=== PATIENT | male | born 1965 | race American Indian/Alaskan Native ===

== ENCOUNTER 2019-11-06 15:23 | Emergency (ER) | payer MEDICARE, OTHER ==
[2019-11-06] MEDS ORDERED: ACETAMINOPHEN 325 MG TAB PO ONE (15:54)
--- NOTE | 2019-11-06 15:56 | Emergency Department Report ---
HPI - General Chief Complaint: Allergic Reaction ED Past Medical Hx - Past Medical History Previous Medical History?: Yes Hx Hypertension: Yes Hx Heart Attack/AMI: No Hx Congestive Heart Failure: No Hx Diabetes: No Hx Deep Vein Thrombosis: No Hx Pulmonary Embolism: No Hx Liver Disease: No Hx Renal Disease: No Hx Sickle Cell Disease: No Hx Arthritis: No Hx Seizures: No Hx Kidney Stones: No Hx Asthma: No Hx COPD: No Hx Tuberculosis: No Hx Dementia: No Hx HIV: No Additional medical history: high cholesterol - Surgical History Hx Coronary Stent: No Hx Pacemaker: No Hx Internal Defibrillator: No - Social History Smoking Status: Former Smoker - Medications Home Medications: Home Medications Medication Instructions Recorded Confirmed Last Taken Type Alfuzosin HCl [Alfuzosin HCl ER] 10 mg PO DAILY 05/29/18 05/29/18 05/29/18 History Gabapentin [Gralise] 300 mg PO DAILY 05/29/18 05/29/18 05/29/18 History Metformin HCl [Fortamet ER] 1,000 mg PO QDAY 05/29/18 05/29/18 05/29/18 History Multivitamin Tab [Multiple Vitamin 1 each PO QDAY 05/29/18 05/29/18 05/29/18 History TAB (Theragran)] Verapamil ER [Calan Sr] 240 mg PO DAILY 05/29/18 05/29/18 05/29/18 History buPROPion SR [Wellbutrin Sr] 150 mg PO QAM 05/29/18 05/29/18 05/29/18 History Clindamycin [Clindamycin CAP] 600 mg PO BID #20 capsule 06/01/18 Unknown Rx oxyCODONE /ACETAMINOPHEN [Percocet 1 tab PO Q6HR PRN #12 tablet 06/01/18 Unknown Rx 5/325] ED Review of Systems ROS: Stated complaint: ALERGIC REACTION Other details as noted in HPI Physical Exam - Physical Exam Vital Signs: Vital Signs 11/06/19 11/06/19 15:40 15:48 Temperature 103.2 F H Pulse Rate 112 H Respiratory 24 Rate Blood Pressure 134/70 ED Course Vital Signs 11/06/19 11/06/19 15:40 15:48 Temperature 103.2 F H Pulse Rate 112 H Respiratory 24 Rate Blood Pressure 134/70 Critical care attestation.: If time is entered above; I have spent that time in minutes in the direct care of this critically ill patient, excluding procedure time. ED Disposition Condition: Stable
[2019-11-06] MEDS ORDERED: dexAMETHasone 20 MG/5 ML VIAL IV ONE (16:36)
[2019-11-06] MEDS ORDERED: diphenhydrAMINE 50 MG/ML VIAL IV ONE (16:36)
--- NOTE | 2019-11-06 17:39 | Emergency Department Report ---
ED General Adult HPI - General Chief complaint: Allergic Reaction Stated complaint: ALERGIC REACTION Time Seen by Provider: 11/06/19 16:35 Source: patient, EMS Mode of arrival: Stretcher Limitations: No Limitations - History of Present Illness Initial comments: Patient is presenting with a possible allergic reaction. Patient is a 54-year-old F [place] male who has a infection to the left great toe. Patient had a PICC line placed yesterday and was started on daptomycin. After receiving the daptomycin yesterday the patient states he did have some chills and some mild shortness of breath. 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 [place] as though his throat was tightening and he could not breathe. Patient is feeling somewhat improved currently. Patient denies any rash or itching. Patient states he is already contacted his ID doctor and there going to contact the patient about alternative medications. Severity scale (0 -10): 4 - Related Data Home Medications Medication Instructions Recorded Confirmed Last Taken Alfuzosin HCl [Alfuzosin HCl ER] 10 mg PO DAILY 05/29/18 05/29/18 05/29/18 Gabapentin [Gralise] 300 mg PO DAILY 05/29/18 05/29/18 05/29/18 Metformin HCl [Fortamet ER] 1,000 mg PO QDAY 05/29/18 05/29/18 05/29/18 Multivitamin Tab [Multiple Vitamin 1 each PO QDAY 05/29/18 05/29/18 05/29/18 TAB (Theragran)] Verapamil ER [Calan Sr] 240 mg PO DAILY 05/29/18 05/29/18 05/29/18 buPROPion SR [Wellbutrin Sr] 150 mg PO QAM 05/29/18 05/29/18 05/29/18 Previous Rx's Medication Instructions Recorded Last Taken Type Clindamycin [Clindamycin CAP] 600 mg PO BID #20 capsule 06/01/18 Unknown Rx oxyCODONE /ACETAMINOPHEN [Percocet 1 tab PO Q6HR PRN #12 tablet 06/01/18 Unknown Rx 5/325] Allergies Allergy/AdvReac Type Severity Reaction Status Date / Time ibuprofen Allergy Itching Verified 05/29/18 11:47 ED Review of Systems ROS: Stated complaint: ALERGIC REACTION Other details as noted in HPI Comment: All other systems reviewed and negative ED Past Medical Hx - Past Medical History Previous Medical History?: Yes Hx Hypertension: Yes Hx Heart Attack/AMI: No Hx Congestive Heart Failure: No Hx Diabetes: No Hx Deep Vein Thrombosis: No Hx Pulmonary Embolism: No Hx Liver Disease: No Hx Renal Disease: No Hx Sickle Cell Disease: No Hx Arthritis: No Hx Seizures: No Hx Kidney Stones: No Hx Asthma: No Hx COPD: No Hx Tuberculosis: No Hx Dementia: No Hx HIV: No Additional medical history: high cholesterol - Surgical History Hx Coronary Stent: No Hx Pacemaker: No Hx Internal Defibrillator: No - Social History Smoking Status: Unknown if ever smoked Substance Use Type: None - Medications Home Medications: Home Medications Medication Instructions Recorded Confirmed Last Taken Type Alfuzosin HCl [Alfuzosin HCl ER] 10 mg PO DAILY 05/29/18 05/29/18 05/29/18 Histo ry Gabapentin [Gralise] 300 mg PO DAILY 05/29/18 05/29/18 05/29/18 History Metformin HCl [Fortamet ER] 1,000 mg PO QDAY 05/29/18 05/29/18 05/29/18 History Multivitamin Tab [Multiple Vitamin 1 each PO QDAY 05/29/18 05/29/18 05/29/18 History TAB (Theragran)] Verapamil ER [Calan Sr] 240 mg PO DAILY 05/29/18 05/29/18 05/29/18 History buPROPion SR [Wellbutrin Sr] 150 mg PO QAM 05/29/18 05/29/18 05/29/18 History Clindamycin [Clindamycin CAP] 600 mg PO BID #20 capsule 06/01/18 Unknown Rx oxyCODONE /ACETAMINOPHEN [Percocet 1 tab PO Q6HR PRN #12 tablet 06/01/18 Unknown Rx 5/325] ED Physical Exam - General Limitations: No Limitations General appearance: alert, in no apparent distress, other (Patient is diaphoretic) - Head Head exam: Present: atraumatic, normocephalic - Eye Eye exam: Present: normal appearance, PERRL - ENT ENT exam: Present: normal orophraynx, mucous membranes moist - Neck Neck exam: Present: normal inspection - Respiratory Respiratory exam: Present: normal lung sounds bilaterally. Absent: respiratory distress, wheezes, rales, rhonchi - Cardiovascular Cardiovascular Exam: Present: regular rate, normal rhythm, normal heart sounds. Absent: systolic murmur, diastolic murmur, rubs, gallop - GI/Abdominal GI/Abdominal exam: Present: soft, normal bowel sounds. Absent: distended, tenderness, guarding, rebound - Rectal Rectal exam: Present: deferred - Extremities Exam Extremities exam: Present: normal inspection - Back Exam Back exam: Present: normal inspection - Neurological Exam Neurological exam: Present: alert, oriented X3 - Psychiatric Psychiatric exam: Present: normal affect, normal mood - Skin Skin exam: Present: warm, dry, intact, normal color. Absent: rash ED Course Vital Signs 11/06/19 11/06/19 11/06/19 15:40 15:48 16:00 Temperature 103.2 F H Pulse Rate 112 H 111 H Respiratory 24 29 H Rate Blood Pressure 134/70 118/64 O2 Sat by Pulse 95 Oximetry 11/06/19 17:00 Temperature Pulse Rate 96 H Respiratory 26 H Rate Blood Pressure 134/67 O2 Sat by Pulse 96 Oximetry ED Medical Decision Making - Medical Decision Making Patient was monitored here in emergency department. He was given a dose of Decadron and Benadryl. He states that he no longer feels shortness of breath and does not feel as though his throat is going to close. Patient can continue with Benadryl as needed. Critical care attestation.: If time is entered above; I have spent that time in minutes in the direct care of this critically ill patient, excluding procedure time. ED Disposition Clinical Impression: Cellulitis of left foot Drug reaction Qualifiers: Encounter type: initial encounter Qualified Code(s): T50.905A - Adverse effect of unspecified drugs, medicaments and biological substances, initial encounter Disposition: DC-01 TO HOME OR SELFCARE Is pt being admited?: No Does the pt Need Aspirin: No Condition: Stable Time of Disposition: 17:39
[2019-11-06 18:17] VITALS: BP 123/65
== END 2019-11-06 18:17 | disposition home or self-care (01) ==
LOC: ED 15:23
DX: R06.02 Shortness of breath (principal); T36.8X5A Adverse effect of other systemic antibiotics, initial encounter; L03.115 Cellulitis of right lower limb; R68.83 Chills (without fever); I10 Essential (primary) hypertension; Z79.84 Long term (current) use of oral hypoglycemic drugs; Z79.899 Other long term (current) drug therapy; Z88.6 Allergy status to analgesic agent; Y92.89 Other specified places as the place of occurrence of the external cause
CPT/HCPCS: 96374; 96375; 99284; J1100; J1200

== ENCOUNTER 2020-08-11 08:30 | Day surgery (SDC) | payer MEDICARE ==
[2020-08-11] MEDS ORDERED: SODIUM CHLORIDE 0.9% 500 ML 500 ML IV SCH (09:00)
[2020-08-11] MEDS ORDERED: ASPIRIN EC 325 MG TAB PO ONE (09:00)
[2020-08-11 09:34] LABS: Basophils % (Auto) 0.7 % (0.0-1.8); Eosinophils # (Auto) 0.1 K/mm3 (0.0-0.4); Eosinophils % (Auto) 1.8 % (0.0-4.3); Hematocrit 43.8 % (35.5-45.6); Hemoglobin 14.3 gm/dl (11.8-15.2); Lymphocytes # (Auto) 1.5 K/mm3 (1.2-5.4); Lymphocytes % (Auto) 25.9 % (13.4-35.0); Mean Corpuscular HGB Conc 33 % (32-34); Mean Corpuscular Volume 85 fl (84-94); Monocytes # (Auto) 0.4 K/mm3 (0.0-0.8); Monocytes % (Auto) 6.4 % (0.0-7.3); Platelet Count 209 K/mm3 (140-440); Red Blood Count 5.15 M/mm3 (3.65-5.03)
[2020-08-11 10:16] LABS: INR 1.02 (0.87-1.13)
[2020-08-11 10:17] LABS: BUN/Creatinine Ratio 16; Blood Urea Nitrogen 19 mg/dL (9-20); Calcium 8.9 mg/dL (8.4-10.2); Hemolysis Index 5
[2020-08-11] MEDS ORDERED: HEPARIN/NS 5000 UNIT/500ML 500 ML IR ONE ×2 (11:49→12:13)
[2020-08-11] MEDS ORDERED: MIDAZOLAM 2 MG/2 ML INJ ONE (12:03)
[2020-08-11] MEDS ORDERED: LIDOCAINE (1%) 10 MG/1 ML VIAL 20 ML MDV ONE (12:03)
[2020-08-11] MEDS ORDERED: fentaNYL 100 MCG/2 ML INJ ONE (12:03)
[2020-08-11] MEDS ORDERED: FUROSEMIDE 40 MG/4 ML INJ ONE (12:10)
[2020-08-11] MEDS ORDERED: FUROSEMIDE 20 MG/2 ML INJ ONE ×2 (12:12→12:14)
[2020-08-11] MEDS ORDERED: NITROGLYCERIN 0.4 MG TAB SUBL SL ONE (12:27)
--- NOTE | 2020-08-11 12:59 | Cardiac Catherization Report ---
REASON FOR PROCEDURE: Shortness of breath and abnormal thallium stress test. PROCEDURES: 1. Right heart catheterization. 2. Left heart catheterization. 3. Selective left and right coronary angiography. 4. Left ventricular angiography. 5. Sedation time, start 11:47, end 12:14. DESCRIPTION OF PROCEDURE: I was present for the entire procedure and supervised the moderate sedation protocol. The patient was prepped and draped in a sterile fashion after informed consent. The right femoral artery and vein were both entered using the Seldinger technique. A 6-Hungarian sheath was placed in the artery and an 8-Hungarian sheath in the vein. A [place]onna catheter was then advanced to the pulmonary artery position. A pigtail catheter was advanced into the left ventricle. Cardiac output was then measured using the thermodilution method. Simultaneous left and right heart filling pressures were measured. The [place]-Shonna catheter was then withdrawn, right heart pressures measured on pullback. We then performed left ventricular angiography via the pigtail catheter, following which the pigtail catheter was withdrawn across the aortic valve and transaortic pressures recorded. Selective left and right coronary angiography was then performed using #4 left Bennie and #4 right Bennie. The catheters were then removed, sheaths removed. Hemostasis at the arterial site using an Angio-Seal device and at the venous sites using manual compression. The patient was returned to the postprocedure unit in stable condition. There were no complications. FINDINGS: HEMODYNAMICS: The mean right atrial pressure was 20. Right ventricular pressure was 60/20. Pulmonary artery pressure was 65/40. The mean pulmonary artery wedge pressure was 35 with V-waves of 50. Left ventricular end-diastolic pressure was 35-40. Ascending aortic pressure was 155/111. There was no significant pressure gradient on pullback across the aortic valve. CORONARY ANGIOGRAPHY: The left main coronary artery was free of significant disease. The left anterior descending artery and its diagonal branches were of very small caliber with diffuse atherosclerosis. Notably, the mid LAD contained a long segment of severe diffuse atherosclerosis with up to 90% luminal narrowing. The circumflex artery contained a long, 70-75% stenosis of its proximal AV groove segment before a medium sized mid obtuse marginal. After the mid obtuse marginal, there was severe diffuse disease of small caliber distal circumflex system. The right coronary artery was of relatively larger caliber. This vessel contained severe calcification extending through its proximal and mid segments. This vessel was occluded in its mid segment. This was a chronic total occlusion with some faint antegrade collateralization and some faint left to right collateralization of the distal right coronary segments. The left ventricle was severely dilated. There was severe left ventricular systolic dysfunction with hypokinesis to akinesis of all coronary segments in the WALLACE projection. The estimated left ventricular ejection fraction was less than 10-15%. CONCLUSION: 1. Severe 3-vessel coronary artery disease. 2. Severe ischemic cardiomyopathy with end-stage left ventricular systolic dysfunction, ejection fraction 10-15%. 3. Moderately severe pulmonary hypertension. 4. Elevated right and left heart filling pressures. RECOMMENDATIONS: The patient will be recommended for CT surgery evaluation, with myocardial viability assessment as a guide to eventual revascularization. [facility]# [id number] DANA/MARIANO SANCHEZ
--- NOTE | 2020-08-11 13:08 | Discharge Summary ---
Short Stay Discharge Plan Activity: advance as tolerated Weight Bearing Status: Partial Weight Bearing Diet: low fat, low cholesterol, low salt, diabetic Wound: keep clean and dry Special Instructions: smoking cessation, no heavy lifting (3 days), hold Metformin (48 hrs) Follow up with: SALIMA DODSON MD [Primary Care Provider] - 7 Days BRAVO DUNNE MD [Staff Physician] - 7 Days
[2020-08-11] MEDS ORDERED: SODIUM CHLORIDE 0.9% 1000 ML 1,000 ML IV SCH (13:15)
[2020-08-11] MEDS ORDERED: INSULIN REGULAR, HUMAN 100 UNITS/1 ML SUB-Q SCH (13:30)
[2020-08-11] MEDS ORDERED: traMADol 50 MG TAB PO PRN (14:00)
[2020-08-11] MEDS ORDERED: NITROGLYCERIN 2% OINT 1 GM TP SCH (14:00)
[2020-08-11 17:24] VITALS: BP 131/97
== END 2020-08-11 16:15 | disposition critical access hospital (66) ==
LOC: CATHLABREC 08:30
PROVIDERS: ATTEND Internal Medicine Cardiovascular Disease
DX: R06.02 Shortness of breath (principal); R94.39 Abnormal result of other cardiovascular function study; I25.10 Atherosclerotic heart disease of native coronary artery without angina pectoris; I25.5 Ischemic cardiomyopathy; I27.20 Pulmonary hypertension, unspecified; I11.0 Hypertensive heart disease with heart failure; I50.20 Unspecified systolic (congestive) heart failure; E11.628 Type 2 diabetes mellitus with other skin complications; G62.9 Polyneuropathy, unspecified; E66.01 Morbid (severe) obesity due to excess calories; F32.9 Major depressive disorder, single episode, unspecified; G47.30 Sleep apnea, unspecified; M19.90 Unspecified osteoarthritis, unspecified site; F41.9 Anxiety disorder, unspecified; Z98.890 Other specified postprocedural states; Z88.8 Allergy status to other drugs, medicaments and biological substances; Z79.899 Other long term (current) drug therapy; Z87.891 Personal history of nicotine dependence; Z68.28 Body mass index [BMI] 28.0-28.9, adult
CPT/HCPCS: 36415; 80048; 82962; 85025; 85610; 85730; 93005; 93460; 99156; 99157; C1760; C1769; C1894; J1644; J1940; J2250; J3010; J1815; Q9967